=== PATIENT | female | born 1995 | race Hispanic/Latino ===

== ENCOUNTER 2018-12-12 11:00 | Observation (INO) | payer OTHER ==
[~2018-12-12] VITALS: Ht 162.6 cm; Wt 79.3 kg
[2018-12-12 09:38] LABS: BASOPHILS % (AUTO) 0.5 % (0.0-5.0); EOSINOPHILS % (AUTO) 0.9 % (0.0-8.0); HEMATOCRIT 34.3 % (36-48); LYMPHOCYTES % (AUTO) 23.9 % (21.0-51.0); MEAN CORPUSCULAR HEMOGLOBIN 22.8 pg (27.0-33.0); MEAN CORPUSCULAR HGB CONC 31.7 g/dL (32.0-36.0); MEAN CORPUSCULAR VOLUME 71.8 fL (80-100); MONOCYTES % (AUTO) 5.6 % (3.0-13.0); NEUTROPHILS % (AUTO) 69.1 % (40.0-77.0); PLATELET COUNT (AUTO) 269 K/uL (130-400); RED BLOOD CELL COUNT(AUTO) 4.78 MIL/uL (4.00-5.50); RED CELL DISTRIBUTION WIDTH 17.1 % (11.0-15.5); WHITE BLOOD COUNT (AUTO) 7.6 K/uL (4.8-10.8)
[2018-12-12 09:40] VITALS: BP 117/64
[2018-12-12 09:48] LABS: POTASSIUM 4.1 mmol/L (3.5-5.1)
[~2018-12-12 11:00] MED LIST: DIAZ2TAB PO; DICY10 PO; ESOM40CA PO; GABA-531 PO; KETO10 PO; TRAM50TA4 PO
--- NOTE | 2018-12-15 14:22 | NUR ---
CBC INFORMED DR. PROSPER ARANDA ASST OF ABNORMAL CBC. PER DR. CHENG, REPEAT CBC IN AM OF PROCEDURE.
[2018-12-16] VITALS (23 sets, daily range): BP systolic 93–106; BP diastolic 46–72
[2018-12-16] MEDS: CEFAZOLIN SODIUM 1 GM VIAL IVP SCH ×5 (06:30→21:59)
[2018-12-16] MEDS ORDERED: LACTATED RINGERS 1000ML 1,000 ML IV ONE (06:36)
[2018-12-16 06:54] LABS: BASOPHILS % (AUTO) 0.4 % (0.0-5.0); EOSINOPHILS % (AUTO) 1.6 % (0.0-8.0); HEMATOCRIT 33.7 % (36-48); LYMPHOCYTES % (AUTO) 26.6 % (21.0-51.0); MEAN CORPUSCULAR HEMOGLOBIN 22.9 pg (27.0-33.0); MEAN CORPUSCULAR HGB CONC 31.9 g/dL (32.0-36.0); MEAN CORPUSCULAR VOLUME 71.8 fL (80-100); NEUTROPHILS % (AUTO) 65.4 % (40.0-77.0); PLATELET COUNT (AUTO) 283 K/uL (130-400); RED BLOOD CELL COUNT(AUTO) 4.69 MIL/uL (4.00-5.50); RED CELL DISTRIBUTION WIDTH 17.2 % (11.0-15.5)
[2018-12-16] MEDS ORDERED: ROCURONIUM 10MG/1ML SYR 10 MG/ML ML ONE ×2 (06:58→09:00)
[2018-12-16] MEDS ORDERED: FENTANYL CITRATE PF 50 MCG/1 ML 2ML VIAL ONE ×2 (06:58→09:41)
[2018-12-16] MEDS ORDERED: LIDOCAINE PF 2% 5ML ABBOJECT ONE (06:58)
[2018-12-16] MEDS ORDERED: PROPOFOL 10 MG/ML 20ML VIAL IV ONE (06:58)
[2018-12-16] MEDS ORDERED: MIDAZOLAM HCL 1 MG/ML 2ML VIAL ONE (06:58)
[2018-12-16] MEDS ORDERED: BUPIVACAINE/EPI/PF 0.5% 30ML VIAL IJ ONE (06:58)
[2018-12-16] MEDS ORDERED: SUCCINYLCHOLINE 200MG/10ML SYR ONE (06:58)
[2018-12-16] MEDS ORDERED: DURAMORPH PF1 MG/ML 10ML AMP IV ONE (06:59)
[2018-12-16] MEDS ORDERED: BACITRACIN 50,000 UNIT VIAL ONE (06:59)
[2018-12-16] MEDS ORDERED: THROMBIN-JMI 20000 UNIT KIT TP ONE (06:59)
[2018-12-16] MEDS ORDERED: PHENYLEPHRINE HCL 10 MG/ML 1ML VIAL IV ONE (07:51)
[2018-12-16] MEDS ORDERED: SODIUM CHLORIDE 0.9% 10 ML VIAL ONE (07:51)
[2018-12-16] MEDS ORDERED: DEXAMETHASONE SOD PHOSPHATE 10MG/ML 1ML VIAL ONE (08:58)
[2018-12-16] MEDS ORDERED: NEOSTIGMINE 5MG/5ML SYR IV ONE (09:33)
[2018-12-16] MEDS ORDERED: GLYCOPYRROLATE 1 MG/5 ML SYRINGE ONE (09:33)
[2018-12-16] MEDS ORDERED: SODIUM CHLORIDE 0.9% 10 ML VIAL IVP PRN (09:45)
[2018-12-16] MEDS: DEXAMETHASONE SOD PHOSPHATE 4 MG/ML 1ML VIAL IVP SCH ×3 (09:45→21:59)
[2018-12-16] MEDS ORDERED: PROMETHAZINE HCL 25 MG/ML 1ML AMPULE IM PRN (09:45)
[2018-12-16] MEDS ORDERED: KETOROLAC TROMETHAMINE 10 MG TABLET PO PRN (09:45)
[2018-12-16] MEDS ORDERED: TRAMADOL HCL 50 MG TABLET PO PRN (09:45)
[2018-12-16] MEDS ORDERED: HYDROCODONE/ACETAMINOPHEN 5/325 MG TAB PO PRN (09:45)
[2018-12-16] MEDS ORDERED: ONDANSETRON HCL 4 MG/2 ML VIAL ONE (10:08)
[2018-12-16] MEDS: DICYCLOMINE HCL 20 MG TAB PO SCH ×2 (13:29→20:29)
[2018-12-16] MEDS: GABAPENTIN 300 MG CAPSULE PO SCH ×2 (13:29→20:28)
[2018-12-16] MEDS: LACTATED RINGERS 1000ML 1,000 ML IV SCH ×2 (15:38→20:20)
[2018-12-16] MEDS: MORPHINE SULFATE 2 MG/ML 1ML SYG IVP PRN ×2 (20:27→22:13)
[2018-12-16] MEDS ORDERED: DIAZEPAM 2 MG TAB PO SCH (21:00)
[2018-12-17] MEDS: MORPHINE SULFATE 2 MG/ML 1ML SYG IVP PRN (01:51)
[2018-12-17 04:00] VITALS: BP 102/50
[2018-12-17] MEDS: DEXAMETHASONE SOD PHOSPHATE 4 MG/ML 1ML VIAL IVP SCH (04:20)
[2018-12-17 07:29] VITALS: BP 118/54
[2018-12-17] MEDS: CEFAZOLIN SODIUM 1 GM VIAL IVP SCH (08:42)
[2018-12-17] MEDS ORDERED: PANTOPRAZOLE SODIUM 40 MG TABLET.DR PO SCH (09:00)
--- NOTE | 2018-12-17 09:00 | NUR ---
DISCHARGE PERFORMED LOWER BACK DRESSING CHANGE PRIOR TO DISCHARGE. LOWER BACK INCISION APPROXIMATED, 20 MOHINI INTACT, ASYMPTOMATIC. CLEANSED LOWER BACK INCISION WITH STERILE WATER, COVERED WITH 4X4 GAUZE AND SECURED WITH MEDIPORE TAKE. PROVIDED DISCHARGE TEACHING REGARDING RX (MEDROL PACK), DISCHARGE HOME MEDICATION ORDERS, AND EXPLAINED DR. CHENG DISCHARGE INSTRUCTION SHEET. PROVIDED STAPLE REMOVAL KIT TO PATIENT AND INSTRUCTED TO TAKE WITH HER TO SCHEDULED F/U APPT WITH DR. CHENG. PATIENT VERBALIZED UNDERSTANDING OF DISCHARGE TEACHING. REMOVED 20GIV FROM LEFT HAND, CATHETER TIP INTACT. PATIENT TO BE DRIVEN HOME BY HER MOM.
== END 2018-12-17 10:16 | disposition home or self-care (01) ==
LOC: DAHIP 12-16 05:55 → 4BH 12-16 10:25 → EDSEX 12-16 11:00 → EDSTATUS 12-16 11:00
PROVIDERS: ADMIT Neurological Surgery; ATTEND Neurological Surgery
DX: M51.16 Intervertebral disc disorders with radiculopathy, lumbar region (principal); M21.379 Foot drop, unspecified foot; Z79.899 Other long term (current) drug therapy
CPT/HCPCS: 36415 ×2; 63047; 71045; 72020; 80051; 84703; 85025 ×2; 96374; 96375; 96376 ×2; A4215; A4221; A4222; A4223; A4344; A4510; A4600; A4649 ×2; A4663; A6260; G0378 ×22; J0330; J0690 ×2; J1100 ×4; J2001; J2250; J2274; J2370; J2405; J2704; J2710; J3010 ×2; J3490 ×2; J7030; J7120 ×3